=== PATIENT | male | born 1960 | race Caucasian/White ===

== ENCOUNTER 2019-01-27 11:25 | Emergency (ER) | payer OTHER ==
[~2019-01-27] VITALS: Ht 175.3 cm; Wt 75.3 kg
[2019-01-27 11:35] VITALS: Ht 175.3 cm; Wt 75.3 kg
[2019-01-27 13:19] VITALS: BP 120/77
== END 2019-01-27 13:19 | disposition home or self-care (01) ==
LOC: ED 11:25
DX: S81.812A Laceration without foreign body, left lower leg, initial encounter (principal); Z98.890 Other specified postprocedural states; W20.8XXA Other cause of strike by thrown, projected or falling object, initial encounter; Y93.89 Activity, other specified; Y92.89 Other specified places as the place of occurrence of the external cause; Y99.8 Other external cause status
CPT/HCPCS: 90715; J2001; Q0092

== ENCOUNTER 2019-01-29 14:59 | Emergency (ER) | payer SELFPAY ==
[~2019-01-29] VITALS: Ht 175.3 cm; Wt 72.1 kg
[2019-01-29 15:06] VITALS: BP 134/74; Ht 175.3 cm; Wt 72.1 kg
== END 2019-01-29 15:49 | disposition home or self-care (01) ==
LOC: ED 14:59
DX: S81.812D Laceration without foreign body, left lower leg, subsequent encounter (principal); Z85.47 Personal history of malignant neoplasm of testis; Z98.890 Other specified postprocedural states; X58.XXXD Exposure to other specified factors, subsequent encounter

== ENCOUNTER 2019-02-10 15:21 | Emergency (ER) | payer OTHER ==
[~2019-02-10] VITALS: Ht 175.3 cm; Wt 75.7 kg
[2019-02-10 15:37] VITALS: BP 148/86; Ht 175.3 cm; Wt 75.7 kg
== END 2019-02-10 17:12 | disposition home or self-care (01) ==
LOC: ED 15:21
DX: Z48.02 Encounter for removal of sutures (principal); L03.116 Cellulitis of left lower limb; Z85.47 Personal history of malignant neoplasm of testis; Z98.890 Other specified postprocedural states

== ENCOUNTER 2019-05-01 08:08 | Day surgery (SDC) | payer OTHER ==
[~2019-05-01] VITALS: Ht 175.3 cm; Wt 76.7 kg
[2019-05-01 08:24] VITALS: BP 115/61
[2019-05-01 10:41] VITALS: BP 118/74
== END 2019-05-01 11:10 | disposition home or self-care (01) ==
LOC: DS 08:08 → GI 10:00 → OR 10:00 → DS 11:10
DX: Z12.11 Encounter for screening for malignant neoplasm of colon (principal); D12.4 Benign neoplasm of descending colon; K63.89 Other specified diseases of intestine; E78.5 Hyperlipidemia, unspecified; Z85.47 Personal history of malignant neoplasm of testis; Z98.890 Other specified postprocedural states; Z79.899 Other long term (current) drug therapy; Z98.42 Cataract extraction status, left eye; Z98.41 Cataract extraction status, right eye
CPT/HCPCS: 45378; J1200; J1610; J2250; J2310; J3010; J3490

== ENCOUNTER 2020-02-16 08:07 | Emergency (ER) | payer OTHER ==
[~2020-02-16] VITALS: Ht 175.3 cm; Wt 76.2 kg
[2020-02-16 08:17] VITALS: Ht 175.3 cm; Wt 76.2 kg
[2020-02-16 10:08] VITALS: BP 136/89
== END 2020-02-16 10:08 | disposition home or self-care (01) ==
LOC: ED 08:07
DX: S61.012A Laceration without foreign body of left thumb without damage to nail, initial encounter (principal); Z98.890 Other specified postprocedural states; Z85.47 Personal history of malignant neoplasm of testis; W45.8XXA Other foreign body or object entering through skin, initial encounter; Y93.89 Activity, other specified; Y92.89 Other specified places as the place of occurrence of the external cause; Y99.8 Other external cause status
CPT/HCPCS: J2001

== ENCOUNTER 2020-02-18 10:43 | Emergency (ER) | payer OTHER ==
[~2020-02-18] VITALS: Ht 175.3 cm; Wt 75.3 kg
[2020-02-18 10:57] VITALS: Ht 175.3 cm; Wt 75.3 kg
[2020-02-18 12:11] VITALS: BP 130/70
== END 2020-02-18 12:11 | disposition home or self-care (01) ==
LOC: ED 10:43
DX: S61.012D Laceration without foreign body of left thumb without damage to nail, subsequent encounter (principal); Z98.890 Other specified postprocedural states; X58.XXXD Exposure to other specified factors, subsequent encounter

== ENCOUNTER 2020-02-26 12:49 | Emergency (ER) | payer OTHER ==
[~2020-02-26] VITALS: Ht 175.3 cm; Wt 75.3 kg
[2020-02-26 12:53] VITALS: Ht 175.3 cm; Wt 75.3 kg
[2020-02-26 13:44] VITALS: BP 101/75
== END 2020-02-26 13:44 | disposition home or self-care (01) ==
LOC: ED 12:49
DX: S61.012D Laceration without foreign body of left thumb without damage to nail, subsequent encounter (principal); Z98.890 Other specified postprocedural states; X58.XXXD Exposure to other specified factors, subsequent encounter

== ENCOUNTER 2020-03-10 08:01 | Emergency (ER) | payer OTHER ==
[~2020-03-10] VITALS: Ht 175.3 cm; Wt 76.7 kg
[2020-03-10 08:20] VITALS: Ht 175.3 cm; Wt 76.7 kg
[2020-03-10 09:32] VITALS: BP 123/91
== END 2020-03-10 09:32 | disposition home or self-care (01) ==
LOC: ED 08:01
DX: S62.512A Displaced fracture of proximal phalanx of left thumb, initial encounter for closed fracture (principal); X58.XXXA Exposure to other specified factors, initial encounter; Y93.89 Activity, other specified; Y92.89 Other specified places as the place of occurrence of the external cause; Y99.8 Other external cause status
CPT/HCPCS: Q0092